=== PATIENT | female | born 1965 | race Asian ===

== ENCOUNTER 2018-05-14 08:00 | Day surgery (SDC) | payer BC ==
[2018-05-14] MEDS ORDERED: SIMETHICONE 40 MG/0.6 ML ML ONE (08:49)
[2018-05-14] MEDS: MIDAZOLAM HCL 5 MG/5 ML VIAL ONE ×2 (08:50→08:54)
[2018-05-14] MEDS: MEPERIDINE HCL/PF 100 MG/ML AMP ONE ×3 (08:50→08:54)
[2018-05-14 14:23] VITALS: BP_SYST 106
== END 2018-05-14 10:15 | disposition home or self-care (01) ==
LOC: SDS 08:00
PROVIDERS: ATTEND Colon & Rectal Surgery
DX: D12.8 Benign neoplasm of rectum (principal); Z80.8 Family history of malignant neoplasm of other organs or systems; Z79.899 Other long term (current) drug therapy
CPT/HCPCS: 45380; 88305; J2175; J2250